=== PATIENT | male | born 1945 | race Caucasian/White ===

== ENCOUNTER 2019-07-18 06:08 | Inpatient (IN) ==
[2019-07-18] MEDS ORDERED: CeFAZolin Syr 2,000MG/20 ML 2,000 MG/20 ML SYRINGE IVPB ONE (06:38)
[2019-07-18] MEDS ORDERED: Ringers Solution, Lactated 1,000 ML IVC SCH (06:45)
[2019-07-18] MEDS ORDERED: *HR* Midazolam HCl 2 MG/2 ML VIAL ONE (07:18)
[2019-07-18] MEDS ORDERED: *HR* Propofol 200 MG/20 ML VIAL IVP ONE (07:19)
[2019-07-18] MEDS ORDERED: Lidocaine -MPF 2% 2 ML VIAL ONE ×3 (07:28→09:48)
[2019-07-18] MEDS ORDERED: *HR* FentaNYL (PF) 100 MCG/2 ML VIAL ONE ×2 (07:28→08:18)
[2019-07-18] MEDS ORDERED: *HR* Rocuronium Bromide 50 MG/5 ML VIAL ONE ×2 (07:28→09:32)
[2019-07-18] MEDS ORDERED: *HR* Succinylcholine 200 MG/10 ML VIAL IVP ONE (07:34)
[2019-07-18] MEDS ORDERED: *HR* OxyCODONE Immed Rel 5 MG TABLET PO PRN (07:40)
[2019-07-18] MEDS ORDERED: *HR* HYDROmorphone PF 0.5 MG/0.5 ML SYRINGE IVP PRN (07:40)
[2019-07-18] MEDS ORDERED: Ondansetron 4 MG/2 ML VIAL IVP ONE (07:40)
[2019-07-18] MEDS ORDERED: Acetaminophen IV 1,000 MG/100 ML INFUS..BTL ONE (07:41)
[2019-07-18] MEDS ORDERED: Ondansetron 4 MG/2 ML VIAL ONE (08:05)
[2019-07-18] MEDS ORDERED: EPHEDrine 50 MG/ML VIAL ONE (08:08)
[2019-07-18] MEDS ORDERED: *HR* HYDROcodone/Acet 5/325 mg TABLET PO PRN (10:59)
[2019-07-18] MEDS ORDERED: Naloxone 0.4 MG/ML INJ IVP PRN (10:59)
[2019-07-18] MEDS: Ipratropium/Albuterol Neb 3 ML IH SCH ×4 (11:17→23:07)
[2019-07-18] MEDS: 0.9 % Sodium Chloride 1,000 ML IVC SCH (13:06)
[2019-07-18] MEDS: Ketorolac 15 MG/ML VIAL IVP SCH ×2 (13:08→17:25)
[2019-07-18] MEDS: Gabapentin 300 MG CAPSULE PO SCH ×2 (14:46→21:08)
[2019-07-18] MEDS: *HR* Heparin 5,000 UNIT/ML VIAL SQ SCH ×2 (14:46→21:07)
[2019-07-18] MEDS: Insulin DETEMIR 100 UNIT/ML X5UNITS SQ SCH (21:07)
[2019-07-18] MEDS: Sennosides/Docusate Sodium TABLET PO SCH (21:08)
[2019-07-18] MEDS: *HR* Metformin 500 MG TABLET PO SCH (21:08)
[2019-07-18] MEDS: Famotidine 20 MG TABLET PO SCH (21:08)
[2019-07-19] MEDS: 0.9 % Sodium Chloride 1,000 ML IVC SCH (00:13)
[2019-07-19] MEDS: Ketorolac 15 MG/ML VIAL IVP SCH ×4 (00:13→16:54)
[2019-07-19 02:34] LABS: Hematocrit 35.4 % (37.5-50.1); Hemoglobin 12.1 g/dL (12.9-16.9); Mean Corpuscular HGB Conc 34.2 g/dL (31.6-35.5); Mean Corpuscular Volume 93.7 fL (83.0-100.0); Mean Platelet Volume 10.2 fL (9.4-12.4); Platelet Count 178 K/mcL (140-400); Red Blood Count 3.78 M/mcL (4.19-5.50); Red Cell Distribution Width 11.9 % (11.5-14.5); White Blood Count 10.7 K/mcL (4.3-11.1)
[2019-07-19 02:50] LABS: % Iron Saturation 15 % (20-55); BUN/Creatinine Ratio 18 (6-26); Blood Urea Nitrogen 17 mg/dL (8-23); Calcium 8.8 mg/dL (8.6-10.3); Carbon Dioxide 27 mEq/L (23-29); Chloride 102 mEq/L (98-107); Glucose 140 mg/dL (70-105); Iron 49 mcg/dL (65-175); Magnesium 1.6 mg/dL (1.6-2.6); Osmolality,Calculated 284 (280-300); Sodium 135 mEq/L (136-145); Transferrin 233 mg/dL (203-362); eGFR For African Americans > 60 (> 60); eGFR For Non-African Americans > 60 (> 60)
[2019-07-19] MEDS: Ipratropium/Albuterol Neb 3 ML IH SCH ×5 (03:38→20:56)
[2019-07-19] MEDS: *HR* Heparin 5,000 UNIT/ML VIAL SQ SCH ×3 (04:34→20:59)
[2019-07-19] MEDS: Sennosides/Docusate Sodium TABLET PO SCH ×2 (07:55→20:59)
[2019-07-19] MEDS: Cholecalciferol (D-3) 1,000 UNIT (25MCG) TABLET PO SCH (07:55)
[2019-07-19] MEDS: Famotidine 20 MG TABLET PO SCH ×2 (07:55→20:59)
[2019-07-19] MEDS: Lisinopril-HCTZ 20-12.5mg TABLET PO SCH (07:55)
[2019-07-19] MEDS: *HR* Metformin 500 MG TABLET PO SCH ×2 (07:55→20:59)
[2019-07-19] MEDS: Gabapentin 300 MG CAPSULE PO SCH ×3 (07:55→20:59)
[2019-07-19] MEDS ORDERED: Iron Sucrose Complex 400 MG in 0.9 % Sodium Chloride 250 ML IVPB ONE (08:52)
[2019-07-19] MEDS: Insulin DETEMIR 100 UNIT/ML X5UNITS SQ SCH (20:59)
[2019-07-20] MEDS: Ketorolac 15 MG/ML VIAL IVP SCH ×5 (00:29→23:17)
[2019-07-20] MEDS: Ipratropium/Albuterol Neb 3 ML IH SCH ×7 (00:45→23:56)
[2019-07-20 02:32] LABS: BUN/Creatinine Ratio 21 (6-26); Blood Urea Nitrogen 18 mg/dL (8-23); Carbon Dioxide 25 mEq/L (23-29); Chloride 102 mEq/L (98-107); Glucose 140 mg/dL (70-105); Osmolality,Calculated 286 (280-300); Potassium 4.3 mEq/L (3.5-5.1); Sodium 136 mEq/L (136-145); eGFR For African Americans > 60 (> 60); eGFR For Non-African Americans > 60 (> 60)
[2019-07-20] MEDS: *HR* Heparin 5,000 UNIT/ML VIAL SQ SCH ×3 (05:08→20:56)
[2019-07-20] MEDS: Famotidine 20 MG TABLET PO SCH ×2 (07:16→20:57)
[2019-07-20] MEDS: Cholecalciferol (D-3) 1,000 UNIT (25MCG) TABLET PO SCH (07:16)
[2019-07-20] MEDS: Gabapentin 300 MG CAPSULE PO SCH ×3 (07:16→20:57)
[2019-07-20] MEDS: Sennosides/Docusate Sodium TABLET PO SCH ×2 (07:16→20:59)
[2019-07-20] MEDS: *HR* Metformin 500 MG TABLET PO SCH ×2 (07:16→20:58)
[2019-07-20] MEDS: Lisinopril-HCTZ 20-12.5mg TABLET PO SCH (07:16)
[2019-07-20] MEDS: Insulin DETEMIR 100 UNIT/ML X5UNITS SQ SCH (21:27)
[2019-07-21] MEDS: Ipratropium/Albuterol Neb 3 ML IH SCH ×2 (04:06→08:04)
[2019-07-21] MEDS: *HR* Heparin 5,000 UNIT/ML VIAL SQ SCH (05:38)
[2019-07-21] MEDS: Ketorolac 15 MG/ML VIAL IVP SCH (05:39)
[2019-07-21] MEDS: Gabapentin 300 MG CAPSULE PO SCH (07:39)
[2019-07-21] MEDS: *HR* Metformin 500 MG TABLET PO SCH (07:39)
[2019-07-21] MEDS: Cholecalciferol (D-3) 1,000 UNIT (25MCG) TABLET PO SCH (07:39)
[2019-07-21] MEDS: Famotidine 20 MG TABLET PO SCH (07:39)
[2019-07-21] MEDS: Lisinopril-HCTZ 20-12.5mg TABLET PO SCH (07:39)
[2019-07-21] MEDS: Sennosides/Docusate Sodium TABLET PO SCH (07:39)
[2019-07-21 07:44] VITALS: BP 151/90
== END 2019-07-21 11:00 | disposition home or self-care (01) | DRG 164 ==
LOC: SAMDAY 06:08 → 3NENU 10:59
PROVIDERS: ADMIT Thoracic Surgery (Cardiothoracic Vascular Surgery); ATTEND Thoracic Surgery (Cardiothoracic Vascular Surgery)